=== PATIENT | female | born 1995 | race African-American/Black ===

== ENCOUNTER 2024-05-02 21:19 | Emergency (ER) | payer OTHER, SELFPAY ==
[2024-05-02 21:23] VITALS: BP 123/82; PULSE 80; TEMP 36.7; O2SAT 98; BMI 29.1
--- NOTE | 2024-05-02 22:29 | ED.SKABFB1 ---
HPI - Skin/Abscess/Foreign Bdy General Stated complaint: Post Operative Complications Time Seen by Provider: 05/02/24 21:22 Source: patient Mode of arrival: walk-in Limitations: no limitations History of Present Illness HPI narrative: This 28-year-old female who had a 2 weeks ago with her [employer] in [place] after having a in the past presents for evaluation and concerns that her wound is becoming infected. She has some retained sutures at the right lateral edge of the Pfannenstiel incision and a small area that is dehiscing in the middle of the wound. Between these 2 areas there is an area that is red and a little bit macerated. There is been no drainage from it. She has not called her [employer] yet. She is breast-feeding. She has not had any fever. She has not had any nausea or vomiting. Related Data Allergies Allergy/AdvReac Type Severity Reaction Status Date / Time No Known Drug Allergies Allergy Verified 05/02/24 21:28 Review of Systems ROS Status of ROS 10 or more systems reviewed and unremarkable except as noted in history and below Exam Narrative Exam Narrative: Vital signs and Nursing Notes reviewed: Patient is afebrile with a normal pulse, normal blood pressure, she is not hypoxic with pulse ox of 98% on room air General: Awake, alert, oriented, no acute distress, lying comfortably on the stretcher HEENT: Normocephalic atraumatic, mucous membranes are moist and pink, eyes are clear, normal conjunctiva, vision is grossly intact Neck: Supple, no meningeal signs, no anterior or posterior cervical lymphadenopathy Chest: Lungs are clear to auscultation with good air entry, there is no wheezing rhonchi or rales appreciated no accessory muscle use, patient is speaking in complete sentences-no chest wall tenderness to palpation CVS: Regular rate and rhythm S1-S2, no murmurs rubs or gallops, pulses are brisk and equal bilaterally ABD: Soft, flat, nondistended, Pfannenstiel incision noted at the lower abdominal wall. There is a retained suture in the right lateral aspect of the incision, a small area of erythema and induration at the right to mid central area and a small area of dehiscence in the midportion of the incision. There is no drainage or sign of cellulitis or abscess. Extremities: Moving all extremities, no lower extremity tenderness or swelling noted, negative Homans' sign, pulses are brisk and equal bilaterally Skin: Normal in appearance without rash,pallor, petechiae or purpura Neuro: No focal deficits Constitutional Vital Signs, click to edit/add: Last Vital Signs Temp 98.0 F 05/02/24 21:23 Pulse 80 05/02/24 21:23 Resp 16 05/02/24 21:23 BP 123/82 05/02/24 21:23 Pulse Ox 98 05/02/24 21:23 O2 Del Method Room Air 05/02/24 21:23 Course Vital Signs Vital signs: Vital Signs Temperature 98.0 F 05/02/24 21:23 Pulse Rate 80 05/02/24 21:23 Respiratory Rate 16 05/02/24 21:23 Blood Pressure 123/82 05/02/24 21:23 Pulse Oximetry 98 05/02/24 21:23 Oxygen Delivery Method Room Air 05/02/24 21:23 Temperature 98.0 F 05/02/24 21:23 Pulse Rate 80 05/02/24 21:23 Respiratory Rate 16 05/02/24 21:23 Blood Pressure 123/82 05/02/24 21:23 Pulse Oximetry 98 05/02/24 21:23 Oxygen Delivery Method Room Air 05/02/24 21:23 MDM - Skin/Abscess/Foreign Bdy MDM Narrative Medical decision making narrative: This patient presents for evaluation of her Pfannenstiel incision that is 2 weeks old. She does have a small area of dehiscence at the central portion of the incision, a small area of macerated skin with some retained sutures at the right mid to distal end of the incision. There is no induration, sign of abscess or cellulitis. I explained to her that she should follow-up tomorrow with her [employer] who would likely want to see this incision and may want to open it up so that it can heal by second intention. I suggested that she use warm compresses on the area and she will be started on some oral Keflex. She is breast-feeding. She is otherwise stable for discharge. Discharge Plan Discharge Stand Alone Forms: Portal Instructions Clinical Impression: Visit for wound check, Surgical wound dehiscence Patient Disposition: Home, Self-Care Time of Disposition Decision: 22:27 Print Language: Estonian Instructions: Wound Dehiscence (ED), Heat Pack Application (ED), Warm Compress or Soak (ED) Referrals: Physician,Non-Staff, MD [Primary Care Provider] - 1 week
[2024-05-02] MEDS: CEPHALEXIN 500 MG CAPSULE PO (22:37)
== END 2024-05-02 22:46 | disposition home or self-care (01) ==
PROVIDERS: Emergency Provider Emergency Medicine
DX: O90.0 Disruption of cesarean delivery wound (principal)
CPT/HCPCS: 99283